=== PATIENT | male | born 1960 | race African-American/Black ===

== ENCOUNTER 2017-08-19 10:52 | Emergency (ER) | payer MEDICARE ==
[~2017-08-19] VITALS: Ht 190.5 cm; Wt 149.2 kg
[~2017-08-19 10:52] MED LIST: CIPRO500 MG OR; LORTAB 5 OR; NAPROSYN500 MG OR; NO CURRENT MEDS; NO HOME MEDS; PERCOCET 5/325M1 TAB OR; VESICARE10 MG OR
[2017-08-19 11:02] VITALS: BP 174/86
[2017-08-19] MEDS ORDERED: ARICEPT5 MG PO (12:22)
[2017-08-19] MEDS ORDERED: B121000 MCG (12:23)
[2017-08-19] MEDS ORDERED: HALOPERIDOL5 MG PO (12:23)
[2017-08-19] MEDS ORDERED: NAMENDA10 MG PO (12:24)
[2017-08-19] MEDS ORDERED: MICROZIDE12.5 MG PO (12:24)
[2017-08-19 13:05] LABS: HEMATOCRIT 46.6 % (39.0-50.0); HEMOGLOBIN 14.8 g/dl (14.0-18.0); IMMATURE GRANULOCYTES 0.4 % (0.0-1.0); MEAN CELL VOLUME 87.1 fL CALC (80.0-100.0); MEAN CORPUSCULAR HGB 27.7 pG CALC (26.0-32.0); MEAN CORPUSCULAR HGB CONC 31.8 g/L CALC (32.0-36.0); NEUT# 5.54 thou/uL (1.82-7.42); RED BLOOD COUNT 5.35 mill/uL (4.70-6.10); RED CELL DISTRI WIDTH 14.6 % (11.5-15.5)
[2017-08-19 13:12] LABS: ALBUMIN 4.3 g/dL (3.2-5.0); ALKALINE PHOSPHATASE 117 u/l (38-126); BILIRUBIN, TOTAL 0.8 mg/dL (0.0-1.4); BUN 13 mg/dL (9-20); BUN/CREATININE RATIO 12 (12-20 (CALC)); CARBON DIOXIDE 24 mmol/l (22-30); CHLORIDE 105 mmol/l (95-108); CREATININE 1.1 mg/dL (0.7-1.3); GFR > 60 ML/MIN (>=60 (CALC)); GFR FOR AFR.AMER. > 60 ML/MIN (>=60 (CALC)); LIPASE 58 u/l (23-300); SGOT/AST 32 u/l (17-59); SGPT/ALT 45 u/l (21-72); SODIUM 141 mmol/l (137-146); TOTAL PROTEIN 7.9 g/dL (6.3-8.2)
[2017-08-19 13:14] LABS: PROTHROMBIN TIME 10.6 SECONDS (9.0-12.5)
[2017-08-19 13:15] LABS: ANION GAP 17 (6-22 (CALC)); ETHYL ALCOHOL 0 mg/dl (0-30); POTASSIUM 4.5 mmol/l (3.5-5.1)
[2017-08-19 13:23] LABS: MYOGLOBIN 154 ng/mL (0 - 121)
== END 2017-08-19 16:38 | disposition short-term general hospital (02) ==
LOC: ED 10:52
PROVIDERS: Emergency Medicine
DX: F23 Brief psychotic disorder (principal); R41.82 Altered mental status, unspecified; G30.9 Alzheimer's disease, unspecified; F02.80 Dementia in other diseases classified elsewhere, unspecified severity, without behavioral disturbance, psychotic disturbance, mood disturbance, and anxiety
CPT/HCPCS: J2060